=== PATIENT | female | born 1990 | race Caucasian/White ===

== ENCOUNTER 2016-11-26 16:06 | Emergency (ER) | payer OTHER ==
[2016-11-26 16:14] VITALS: BP 128/71; PULSE 78; TEMP 98.3; BMI 26.6
--- NOTE | 2016-11-26 17:36 | PDOC ---
History of Present Illness - General History Source: Patient Exam Limitations: No Limitations - History of Present Illness Initial Comments: 11/26/16 18:38 Pt is a 26 yo F (6.5 weeks ) with no PMHx who presents to the ED with cramping abdominal pain for the past 2 weeks. Patient reports missed with d&c. Patient reports high concern for her current and presents to the ED for further evaluation. Patient reports associated nausea but no vomiting. Patient denies any vaginal discharge or vaginal bleeding. <Renita Lazcano - Last Filed: 11/26/16 18:38> <Alana Dos Santos - Last Filed: 11/26/16 18:45> - General Chief Complaint: Pain Stated Complaint: ABDOMINAL PAIN/6wks Time Seen by Provider: 11/26/16 17:21 Past History <Renita Lazcano - Last Filed: 11/26/16 18:38> - Past Medical History Anemia: No Asthma: No Cancer: No Cardiac Disorders: No CVA: No COPD: No CHF: No Dementia: No Diabetes: No GI Disorders: No Disorders: No HTN: No Hypercholesterolemia: No Liver Disease: No Seizures: No Thyroid Disease: No - Surgical History Abdominal Surgery: Yes (D&C for miscarriage) - Suicide/Smoking/Psychosocial Hx Smoking History: Never smoked Information on smoking cessation initiated: No Hx Alcohol Use: No Drug/Substance Use Hx: No Substance Use Type: None Hx Substance Use Treatment: No <Alana Dos Santos - Last Filed: 11/26/16 18:45> - Past Medical History Allergies/Adverse Reactions: Allergies Allergy/AdvReac Type Severity Reaction Status Date / Time amoxicillin Allergy Severe Rash Verified 11/26/16 16:13 Home Medications: Ambulatory Orders NK [No Known Home Medication] 09/25/14 Review of Systems - Review of Systems Able to Perform ROS?: Yes Comments:: 11/26/16 18:38 GENERAL/CONSTITUTIONAL: No fever or chills. No weakness. HEAD, EYES, EARS, NOSE AND THROAT: No change in vision. No ear pain or discharge. No sore throat. CARDIOVASCULAR: No chest pain or shortness of breath. RESPIRATORY: No cough, wheezing, or hemoptysis. GASTROINTESTINAL: + nausea. +abdominal cramping. No vomiting, diarrhea or constipation. GENITOURINARY: No dysuria, frequency, or change in urination. MUSCULOSKELETAL: No joint or muscle swelling or pain. No neck or back pain. SKIN: No rash NEUROLOGIC: No headache, vertigo, loss of consciousness, or change in strength/ sensation. ENDOCRINE: No increased thirst. No abnormal weight change. HEMATOLOGIC/LYMPHATIC: No anemia, easy bleeding, or history of blood clots. ALLERGIC/IMMUNOLOGIC: No hives or skin allergy. <Renita Lazcano - Last Filed: 11/26/16 18:38> *Physical Exam - Vital Signs Last Vital Signs Temp Pulse Resp BP Pulse Ox 98.3 F 78 18 128/71 100 11/26/16 16:12 11/26/16 16:12 11/26/16 16:12 11/26/16 16:12 11/26/16 16:12 - Physical Exam Comments: 11/26/16 18:39 GENERAL: Awake, alert, and fully oriented, in no acute distress HEAD: No signs of trauma EYES: PERRLA, EOMI, sclera anicteric, conjunctiva clear ENT: Auricles normal inspection, hearing grossly normal, nares patent, oropharynx clear without exudates. Moist mucosa NECK: Normal ROM, supple, no lymphadenopathy, JVD, or masses LUNGS: Breath sounds equal, clear to auscultation bilaterally. No wheezes, and no crackles HEART: +Tachycardic. Regular rhythm, normal S1 and S2, no murmurs, rubs or gallops ABDOMEN: +Tender to R pelvic area. Soft, nontender, normoactive bowel sounds. No guarding, no rebound. No masses EXTREMITIES: Normal range of motion, no edema. No clubbing or cyanosis. No cords, erythema, or tenderness NEUROLOGICAL: Cranial nerves II through XII grossly intact. Normal speech, normal gait SKIN: Warm, Dry, normal turgor, no rashes or lesions noted. PELVIC: Normal physiologic discharge. +R adnexal tenderness. <Renita Lazcano - Last Filed: 11/26/16 18:38> - Vital Signs Last Vital Signs Temp Pulse Resp BP Pulse Ox 98.3 F 78 18 128/71 100 11/26/16 16:12 11/26/16 16:12 11/26/16 16:12 11/26/16 16:12 11/26/16 16:12 <Alana Dos Santos - Last Filed: 11/26/16 18:45> ED Treatment Course - ADDITIONAL ORDERS Additional order review: Laboratory Results 11/26/16 17:56 Urine Color Ltyellow Urine Appearance Slcloudy Urine pH 5.0 Urine Protein Negative Urine Glucose (UA) Negative Urine Ketones Negative Urine Blood 2+ H Urine Nitrite Negative Urine Bilirubin Negative Urine Urobilinogen Negative Urine RBC 2 Urine WBC 1 Ur Epithelial Cells Rare Urine Bacteria Rare Urine Mucus Rare <Renita Lazcano - Last Filed: 11/26/16 18:38> Medical Decision Making - Medical Decision Making 11/26/16 18:44 a/p: 26yo female with R pelvic pain in 1st trimester of preg -concern for poss ectopic -labs -pelvic ultrasound -pelvic exam -ua -beta -reassess <Alana Dos Santos - Last Filed: 11/26/16 18:45> *DC/Admit/Observation/Transfer - Attestations Scribe Attestion: 11/26/16 18:39 Documentation prepared by Renita Lazcano, acting as medical device sales for Alana Dos Santos DO <Renita Lazcano - Last Filed: 11/26/16 18:38>
[2016-11-26 18:05] LABS: URINE APPEARANCE SLCLOUDY; URINE BILIRUBIN NEGATIVE (NEGATIVE); URINE BLOOD 2+ (NEGATIVE); URINE COLOR LTYELLOW; URINE GLUCOSE (UA) NEGATIVE (NEGATIVE); URINE KETONE NEGATIVE (NEGATIVE); URINE NITRITE NEGATIVE (NEGATIVE); URINE PROTEIN NEGATIVE (NEGATIVE); URINE UROBILINOGEN NEGATIVE mg/dL (0.2-1.0)
[2016-11-26 18:15] LABS: URINE BACTERIA RARE /hpf (NONE SEEN); URINE MUCUS RARE; URINE RBC 2 /hpf (0-3); URINE WBC 1 /hpf (3-5)
[2016-11-26 19:11] LABS: BASOPHIL 0.5 % (0-2.0); EOSINOPHIL 1.6 % (0-4.5); MCH 30.1 pg (25.7-33.7); MEAN CELL VOLUME 88.7 fl (80-96); NEUTROPHILS 70.8 % (42.8-82.8); PLATELET COUNT 237 K/MM3 (134-434); RDW 12.2 % (11.6-15.6); WHITE BLOOD COUNT 12.1 K/mm3 (4.0-10.0)
[2016-11-26 20:06] LABS: ALBUMIN 3.8 g/dl (3.4-5.0); ANION GAP 6 (8-16); BILIRUBIN,TOTAL 0.3 mg/dL (0.2-1.0); CALCIUM 8.9 mg/dL (8.5-10.1); CO2 27 mmol/L (21-32); CREATININE 0.5 mg/dL (0.55-1.02); GLUCOSE,RANDOM 68 mg/dL (74-106); SGOT/AST 17 U/L (15-37); SGPT/ALT 22 U/L (12-78)
[2016-11-26 20:21] LABS: ALK PHOS 111 U/L (45-117)
[2016-11-26 21:38] LABS: URINE LEUK ESTERASE Negative (NEGATIVE)
--- NOTE | 2016-11-26 22:27 | PDOC ---
*Physical Exam - Vital Signs Last Vital Signs Temp Pulse Resp BP Pulse Ox 98.3 F 78 18 128/71 100 11/26/16 16:12 11/26/16 16:12 11/26/16 16:12 11/26/16 16:12 11/26/16 16:12 ED Treatment Course - LABORATORY CBC & Chemistry Diagram: 11/26/16 18:22 11/26/16 18:22 - ADDITIONAL ORDERS Additional order review: Laboratory Results 11/26/16 11/26/16 11/26/16 18:22 18:22 17:56 Sodium 134 L Potassium 3.6 Chloride 101 Carbon Dioxide 27 Anion Gap 6 L BUN 7 Creatinine 0.5 L Creat Clearance w eGFR > 60 Random Glucose 68 L Calcium 8.9 Total Bilirubin 0.3 AST 17 ALT 22 Alkaline Phosphatase 111 Total Protein 8.0 Albumin 3.8 Beta HCG, Quant 14099.1 Urine Color Ltyellow Urine Appearance Slcloudy Urine pH 5.0 Ur Specific [place] 1.015 Urine Protein Negative Urine Glucose (UA) Negative Urine Ketones Negative Urine Blood 2+ H Urine Nitrite Negative Urine Bilirubin Negative Urine Urobilinogen Negative Ur Leukocyte Esterase Negative Urine RBC 2 Urine WBC 1 Ur Epithelial Cells Rare Urine Bacteria Rare Urine Mucus Rare Blood Type O POSITIVE Antibody Screen Negative 11/26/16 18:22 RBC 4.47 MCV 88.7 MCHC 34.0 RDW 12.2 MPV 8.0 Neutrophils % 70.8 Lymphocytes % 21.6 Monocytes % 5.5 Eosinophils % 1.6 Basophils % 0.5 *DC/Admit/Observation/Transfer Diagnosis at time of Disposition: Qualifiers: Weeks of gestation: less than 8 weeks Qualified Code(s): Z3A.01 - Less than 8 weeks gestation of - Discharge Dispostion Disposition: HOME Condition at time of disposition: Stable Admit: No - Referrals Referrals: Trace Srivastava MD [Staff Physician] - - Patient Instructions Printed Discharge Instructions: Managing Symptoms of
== END 2016-11-26 22:28 | disposition home or self-care (01) ==
LOC: JER 16:06
DX: O26.891 Other specified pregnancy related conditions, first trimester (principal); Z3A.01 Less than 8 weeks gestation of pregnancy
CPT/HCPCS: 36415; 76817-TC; 80053; 81003; 81015; 84702; 85025; 86850; 86900; 86901; 99282-25

== ENCOUNTER 2016-11-30 11:33 | Emergency (ER) | payer OTHER ==
[2016-11-30 11:40] VITALS: BMI 27.4
--- NOTE | 2016-11-30 11:52 | PDOC ---
History of Present Illness - General Chief Complaint: Pain Stated Complaint: PAIN (6 WKS ) Time Seen by Provider: 11/30/16 11:48 History Source: Patient Exam Limitations: No Limitations - History of Present Illness Travel History: No Initial Comments: 11/30/16 11:59 26 yr female states 6 weeks seen in ER for same last week. Pt states today she became upset at work and started to have pelvic cramps that are stronger than last week. Pt denies any bleeding or back pain. Pt is had SAB at 8 weeks in 2014. Pt has no medical or surgical history. Timing/Duration: reports: constant Quality: reports: cramping Abdominal Pain Onset Location: reports: suprapubic Pain Radiation: reports: no radiation Past History - Past Medical History Allergies/Adverse Reactions: Allergies Allergy/AdvReac Type Severity Reaction Status Date / Time amoxicillin Allergy Severe Rash Verified 11/30/16 11:35 Home Medications: Ambulatory Orders NK [No Known Home Medication] 09/25/14 Anemia: No Asthma: No Cancer: No Cardiac Disorders: No CVA: No COPD: No CHF: No Dementia: No Diabetes: No GI Disorders: No Disorders: No HTN: No Hypercholesterolemia: No Liver Disease: No Seizures: No Thyroid Disease: No - Surgical History Abdominal Surgery: Yes (D&C for miscarriage) - Suicide/Smoking/Psychosocial Hx Smoking History: Never smoked Information on smoking cessation initiated: No Hx Alcohol Use: No Drug/Substance Use Hx: No Substance Use Type: None Hx Substance Use Treatment: No Review of Systems - Review of Systems Able to Perform ROS?: Yes Is the patient limited Polish proficient: No Constitutional: No: Symptoms Reported HEENTM: No: Symptoms Reported Respiratory: No: Symptoms reported Cardiac (ROS): No: Symptoms Reported ABD/GI: No: Symptoms Reported : Yes: See HPI Musculoskeletal: No: Symptoms Reported Integumentary: No: Symptoms Reported Neurological: No: Symptoms reported *Physical Exam - Vital Signs Last Vital Signs Temp Pulse Resp BP Pulse Ox 98.3 F 95 H 18 142/79 100 11/30/16 11:35 11/30/16 11:35 11/30/16 11:35 11/30/16 11:35 11/30/16 11:35 - Physical Exam General Appearance: Yes: Nourished, Appropriately Dressed HEENT: positive: EOMI, [place] Neck: negative: Tender Respiratory/Chest: positive: Lungs Clear, Normal Breath Sounds. negative: Chest Tender Cardiovascular: positive: Regular Rhythm, Regular Rate Gastrointestinal/Abdominal: positive: Normal Bowel Sounds, Tender (suprapubic ) , Soft Musculoskeletal: positive: Normal Inspection Extremity: positive: Normal Capillary Refill, Normal Inspection, Normal Range of Motion Integumentary: positive: Normal Color, Dry, Warm Neurologic: positive: Fully Oriented, Alert, Normal Mood/Affect, Normal Response , Motor Strength / ED Treatment Course - Consult/PCP Time Called: 14:47 Case discussed with consulting physician: Leatha Gann Medical Decision Making - Medical Decision Making 11/30/16 12:01 cc: lower abdominal/suprapubic area tenderness no vaginal discharge or bleeding will r/o SAB will repeat labs, US pt has apt on 12/09/[address]Sofia Yeboah 11/30/16 14:47 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 labs and US reviewed. pt is cleared to be discharged and follow up as planned. *DC/Admit/Observation/Transfer Diagnosis at time of Disposition: Threatened in early - Discharge Dispostion Disposition: HOME Condition at time of disposition: Good - Patient Instructions Additional Instructions: please keep your appointment with the photoresist printer as scheduled for December 09 pelvic rest avoid any strenuous activity heavy bending or lifting if you are having cramps try to remove yourself from stress full situations and try relaxation techniques return to ER for any worsening symptoms BHCG level 43452.3 Ultrasound shows heart rate at 110bpm and measuring approximately 6 weeks
[2016-11-30 12:22] LABS: URINE APPEARANCE SLCLOUDY; URINE BILIRUBIN NEGATIVE (NEGATIVE); URINE BLOOD 3+ (NEGATIVE); URINE COLOR YELLOW; URINE GLUCOSE (UA) NEGATIVE (NEGATIVE); URINE KETONE NEGATIVE (NEGATIVE); URINE NITRITE NEGATIVE (NEGATIVE); URINE PROTEIN NEGATIVE (NEGATIVE); URINE UROBILINOGEN NEGATIVE mg/dL (0.2-1.0)
[2016-11-30 12:33] LABS: URINE MUCUS RARE; URINE RBC 31 /hpf (0-3); URINE WBC 3 /hpf (3-5)
[2016-11-30 15:33] VITALS: BP 108/63; PULSE 69; TEMP 98
[2016-11-30 16:50] LABS: URINE LEUK ESTERASE Negative (NEGATIVE)
== END 2016-11-30 15:33 | disposition home or self-care (01) ==
LOC: JER 11:33
DX: O26.891 Other specified pregnancy related conditions, first trimester (principal); Z3A.01 Less than 8 weeks gestation of pregnancy; O20.0 Threatened abortion
CPT/HCPCS: 36415; 76817-TC; 81003; 81015; 84702; 87491; 87591; 99282-25

== ENCOUNTER 2017-02-07 15:02 | Emergency (ER) | payer OTHER ==
[2017-02-07 15:07] VITALS: BP 142/69; PULSE 71; TEMP 97.7; BMI 27.4
[2017-02-07] MEDS ORDERED: METOCLOPRAMIDE HCL INJECTION 10 MG/2 ML VIAL IVPB ONE (16:15)
--- NOTE | 2017-02-07 16:22 | PDOC ---
History of Present Illness - General History Source: Patient - History of Present Illness Timing/Duration: other Severity: severe Associated Symptoms: reports: headaches. denies: fever/chills, nausea/vomiting <Na Mcgowan - Last Filed: 02/07/17 18:51> <Ameya Tao - Last Filed: 02/07/17 20:29> - General Chief Complaint: Headache Stated Complaint: BLURRY VISION, HEADACHE @ 17WKS PREG Time Seen by Provider: 02/07/17 16:00 Past History - Past Medical History Anemia: No Asthma: No Cancer: No Cardiac Disorders: No CVA: No COPD: No CHF: No Dementia: No Diabetes: No GI Disorders: No Disorders: No HTN: No Hypercholesterolemia: No Liver Disease: No Seizures: No Thyroid Disease: No - Surgical History Abdominal Surgery: Yes (D&C for miscarriage) - Reproductive History (#): 2 Para: 0 - Immunization History Immunization Up to Date: Yes - Suicide/Smoking/Psychosocial Hx Smoking History: Never smoked Have you smoked in the past 12 months: No Hx Alcohol Use: No Drug/Substance Use Hx: No Substance Use Type: None Hx Substance Use Treatment: No <Na Mcgowan - Last Filed: 02/07/17 18:51> <Ameya Tao - Last Filed: 02/07/17 20:29> - Past Medical History Allergies/Adverse Reactions: Allergies Allergy/AdvReac Type Severity Reaction Status Date / Time amoxicillin Allergy Severe Rash Verified 02/07/17 15:07 Home Medications: Ambulatory Orders Vits #93/Iron Fum/FA [ Formula Tablet] 1 each PO DAILY Review of Systems - Review of Systems Constitutional: No: Chills, Fever ABD/GI: No: Nausea, Vomiting : No: Dysuria, Discharge, Flank Pain, Hematuria Neurological: Yes: Headache <Na Mcgowan - Last Filed: 02/07/17 18:51> *Physical Exam - Vital Signs Last Vital Signs Temp Pulse Resp BP Pulse Ox 97.7 F 71 20 142/69 100 02/07/17 15:04 02/07/17 15:04 02/07/17 15:04 02/07/17 15:04 02/07/17 15:04 - Physical Exam General Appearance: Yes: Appropriately Dressed. No: Apparent Distress HEENT: positive: Normal Voice, Other (no obvious papilledema on fundoscopic exam ) Neck: positive: Supple Respiratory/Chest: negative: Respiratory Distress Female Pelvic Exam: positive: normal external exam, cervical os closed, normal adnexa. negative: CMT, vaginal bleeding Gastrointestinal/Abdominal: positive: Soft. negative: Tender Extremity: positive: Normal Inspection Integumentary: positive: Dry, Warm Neurologic: positive: Fully Oriented, Alert, Normal Mood/Affect, Motor Strength 5/5 <Na Mcgowan - Last Filed: 02/07/17 18:51> - Vital Signs Last Vital Signs Temp Pulse Resp BP Pulse Ox 97.7 F 71 20 142/69 100 02/07/17 15:04 02/07/17 15:04 02/07/17 15:04 02/07/17 15:04 02/07/17 15:04 <Ameya Tao - Last Filed: 02/07/17 20:29> ED Treatment Course - LABORATORY CBC & Chemistry Diagram: 02/07/17 16:39 02/07/17 16:39 - RADIOLOGY Radiology Studies Ordered: Category Date Time Status TRANSVAGINAL US PREG [US] Stat Ultrasound 02/07/17 16:16 Ordered <Na Mcgowan - Last Filed: 02/07/17 18:51> - LABORATORY CBC & Chemistry Diagram: 02/07/17 16:39 02/07/17 16:39 - ADDITIONAL ORDERS Additional order review: Laboratory Results 02/07/17 02/07/17 02/07/17 16:55 16:39 16:39 Sodium 136 Potassium 3.7 Chloride 101 Carbon Dioxide 25 Anion Gap 10 BUN 6 L Creatinine 0.5 L Creat Clearance w eGFR > 60 Random Glucose 64 L Calcium 9.1 Total Bilirubin 0.4 D AST 36 D ALT 46 D Alkaline Phosphatase 84 D Total Protein 7.7 Albumin 3.5 Beta HCG, Quant 79624.8 Urine Color Yellow Urine Appearance Slcloudy Urine pH 6.0 Ur Specific [place] 1.020 Urine Protein Negative Urine Glucose (UA) Negative Urine Ketones 1+ H Urine Blood 2+ H Urine Nitrite Negative Urine Bilirubin Negative Urine Urobilinogen Negative Urine WBC (Auto) 1 Urine RBC (Auto) 15 Ur Epithelial Cells Rare Urine Bacteria Rare Urine Mucus Few 02/07/17 16:39 RBC 4.31 MCV 87.6 MCHC 35.0 RDW 12.7 MPV 7.9 Neutrophils % 81.8 Lymphocytes % 13.7 D Monocytes % 3.6 L Eosinophils % 0.6 Basophils % 0.3 - Medications Given in the ED: ED Medications Discontinued Medications Generic Name Dose Route Start Last Admin Trade Name Crista PRN Reason Stop Dose Admin Acetaminophen 650 mg 02/07/17 18:23 02/07/17 18:54 Tylenol - PO 02/07/17 18:24 650 mg ONCE ONE Administration Metoclopramide HCl 10 mg 02/07/17 16:15 02/07/17 17:00 Reglan Injection - IVPB 02/07/17 16:16 10 mg ONCE ONE Administration <Ameya Tao D - Last Filed: 02/07/17 20:29> Medical Decision Making - Medical Decision Making 02/07/17 16:18 26 yo F, (s/p 1 spon AB), ~ 17 weeks by dates with +IUP demonstrated on multiple ultrasounds per patient, states she is currently on clindamycin for the past 4 weeks for elevated wbc and ? leakage of amniotic fluid in OB's office , here with headache since starting clindamycin. Patient states she gets daily frontal headache that last all day, but worsened today with some dizziness and possible blurry vision. Has not taking anything for pain. No seizures, nausea or vomiting. Also reporting left pelvic pain for 3 days, no vaginal bleeding or dysuria. No vaginal discharge/leakage at this time See exam AKHTAR in Stable in ED w/ unremarkable exam Consider venous sinus thrombosis (though very low suspicion as no vomiting or papilledema and neuro intact), gestation too early to consider pre-eclampsia, possible side effect of clindamycin (though AKHTAR not well documented SE of clinda) , possible migrainous -reglan -labs -US -will discuss dispo w/ Dr Gann, pt's OB Pelvic pain Abd benign w/ unremarkable pelvic exam R/o uti -US in ED 02/07/17 18:24 02/07/17 18:27 Pt feeling moderately better w/ reglan. Pt remains well appearing and requesting food at this time. Labs unremarkable. US read and call back from OB pending 02/07/17 18:51 At this point, Dr. Gann has not return call ~ 2 hours of paging M.Asif Patient signed out to ERICA Tao pending ultrasound <Na Mcgowan - Last Filed: 02/07/17 18:51> *DC/Admit/Observation/Transfer <Na Mcgowan - Last Filed: 02/07/17 18:51> - Discharge Dispostion Admit: No <Ameya Tao - Last Filed: 02/07/17 20:29> Diagnosis at time of Disposition: Vaginal bleeding in - Discharge Dispostion Disposition: HOME Condition at time of disposition: Stable - Referrals Referrals: Maribel Lozoya MD [Primary Care Provider] - Leatha Gann MD [Staff Physician] - - Patient Instructions Printed Discharge Instructions: DI for Vaginal Bleeding Additional Instructions: Follow up with Dr. Gann this week for further evaluation. Bring Ultrasound report with you. Return if any concerns for further evaluation. Print Language: KINYARWANDA - Post Discharge Activity
[2017-02-07 16:45] LABS: BASOPHIL 0.3 % (0-2.0); EOSINOPHIL 0.6 % (0-4.5); MCH 30.7 pg (25.7-33.7); MEAN CELL VOLUME 87.6 fl (80-96); MEAN PLT VOLUME 7.9 fl (7.5-11.1); NEUTROPHILS 81.8 % (42.8-82.8); PLATELET COUNT 206 K/MM3 (134-434); RDW 12.7 % (11.6-15.6); WHITE BLOOD COUNT 12.7 K/mm3 (4.0-10.0)
[2017-02-07] MEDS ORDERED: METOCLOPRAMIDE HCL INJECTION 10 MG/2 ML VIAL ONE (16:55)
[2017-02-07 17:04] LABS: URINE APPEARANCE SLCLOUDY; URINE BILIRUBIN NEGATIVE (NEGATIVE); URINE BLOOD 2+ (NEGATIVE); URINE COLOR YELLOW; URINE GLUCOSE (UA) NEGATIVE (NEGATIVE); URINE KETONE 1+ (NEGATIVE); URINE LEUK ESTERASE NEGATIVE (NEGATIVE); URINE NITRITE NEGATIVE (NEGATIVE); URINE PROTEIN NEGATIVE (NEGATIVE); URINE UROBILINOGEN NEGATIVE mg/dL (0.2-1.0)
[2017-02-07 17:09] LABS: URINE BACTERIA RARE /hpf (NONE SEEN); URINE MUCUS FEW; URINE RBC 15 /hpf (0-3); URINE WBC 1 /hpf (3-5)
[2017-02-07 17:28] LABS: ALBUMIN 3.5 g/dl (3.4-5.0); ALK PHOS 84 U/L (45-117); ANION GAP 10 (8-16); BILIRUBIN,TOTAL 0.4 mg/dL (0.2-1.0); CALCIUM 9.1 mg/dL (8.5-10.1); CO2 25 mmol/L (21-32); CREATININE 0.5 mg/dL (0.55-1.02); GLUCOSE,RANDOM 64 mg/dL (74-106); SGOT/AST 36 U/L (15-37); SGPT/ALT 46 U/L (12-78); TOT PROT 7.7 g/dl (6.4-8.2)
[2017-02-07] MEDS ORDERED: ACETAMINOPHEN 325 MG TABLET (FP) PO ONE (18:23)
[2017-02-07] MEDS ORDERED: ACETAMINOPHEN 325 MG TABLET (FP) ONE (18:48)
[2017-02-08 13:33] LABS: URINE LEUK ESTERASE Negative (NEGATIVE)
== END 2017-02-07 20:38 | disposition home or self-care (01) ==
LOC: JER 15:02
PROC: 3E033GC Introduction of Other Therapeutic Substance into Peripheral Vein, Percutaneous Approach (ICD-10-PCS; principal; 2017-02-07)
DX: O26.892 Other specified pregnancy related conditions, second trimester (principal); O46.92 Antepartum hemorrhage, unspecified, second trimester; Z3A.17 17 weeks gestation of pregnancy
CPT/HCPCS: 36415; 76815-TC; 80053; 81003; 81015; 84702; 85025; 87086; 87491; 87591; 96374; 99283-25

== ENCOUNTER 2017-07-13 01:25 | Inpatient (IN) | payer OTHER ==
[~2017-07-13 01:25] MED LIST: DEXTROSE 5%-LACTATED RINGERS 500 ML IV ONE
[2017-07-13] MEDS ORDERED: DEXTROSE 5%-LACTATED RINGERS 500 ML IV ONE (02:25)
[2017-07-13] MEDS ORDERED: PROMETHAZINE HCL 25 MG/1 ML VIAL IVPB ONE (02:30)
[2017-07-13] MEDS ORDERED: BUTORPHANOL TARTRATE 1 MG/ML VIAL IVPB ONE (02:30)
[2017-07-13 02:31] LABS: BASO % 0.2 % (0-2.0); EOS % 0.2 % (0-4.5); HEMATOCRIT 36.7 % (32.4-45.2); HEMOGLOBIN 12.6 GM/dL (10.7-15.3); LYMPH % 9.2 % (8-40); MCH 30.7 pg (25.7-33.7); MCHC 34.4 g/dl (32.0-36.0); MEAN CELL VOLUME 89.4 fl (80-96); MEAN PLT VOLUME 8.5 fl (7.5-11.1); MONO % 3.5 % (3.8-10.2); NEUT % 86.9 % (42.8-82.8); PLATELET COUNT 199 K/MM3 (134-434); RBC 4.11 M/mm3 (3.60-5.2); RDW 12.2 % (11.6-15.6); WHITE BLOOD COUNT 18.5 K/mm3 (4.0-10.0)
[2017-07-13] MEDS ORDERED: BUTORPHANOL TARTRATE 1 MG/ML VIAL ONE ×2 (02:33)
[2017-07-13] MEDS ORDERED: PROMETHAZINE HCL 25 MG/1 ML VIAL ONE (02:33)
[2017-07-13 02:54] LABS: PROTHROMBIN TIME (PATIENT) 11.3 SEC (9.7-13.0)
[2017-07-13 02:56] LABS: ACTIVATED PTT 26.9 SECONDS (26.9-34.4)
[2017-07-13 03:01] LABS: ANION GAP 10 (8-16); BLOOD UREA NITROGEN 8 mg/dL (7-18); CALCIUM 8.8 mg/dL (8.5-10.1); CHLORIDE 103 mmol/L (98-107); CO2 22 mmol/L (21-32); CREATININE 0.5 mg/dL (0.55-1.02); GLUCOSE,RANDOM 76 mg/dL (74-106); SODIUM 135 mmol/L (136-145)
[2017-07-13 03:30] VITALS: BMI 29.4
[2017-07-13] MEDS ORDERED: ELECTROLYTE-148 SOLN 1,000 ML IV SCH (06:30)
[2017-07-13] MEDS ORDERED: FENTANYL/BUPIVACAINE/NS/PF - PCEA - 50 ML DISP.SYRIN EP ONE ×2 (07:04→11:31)
[2017-07-13] MEDS ORDERED: NALOXONE HCL 0.4 MG/ML VIAL IVPUSH PRN (07:07)
[2017-07-13] MEDS ORDERED: FENTANYL/BUPIVACAINE/NS/PF - PCEA - 50 ML DISP.SYRIN EP SCH (07:15)
[2017-07-13] MEDS ORDERED: OXYTOCIN 20 UNITS in 0.9% NS 20 UNIT/1,000 ML INFUS.BAG IV ONE (08:49)
--- NOTE | 2017-07-13 08:58 | HP ---
Past Medical History - Admission Chief Complaint: Labor pain History of Present Illness: 27 yo , @ 39 weeks gestation, EDC 07/19/17, admitted for labor pain. She denies any vaginal bleeding nor rupture of membrane. History Source: Patient Limitations to Obtaining History: No Limitations - Past Medical History ...: 2 ...Para: 0 ...Term: 0 ...: 0 ...Spon : 1 ...Induced : 0 ...Multiple Gestation: 0 ...LMP: 10/19/16 ... Weeks Gestation by Dates: 39.1 ...EDC by Dates: 07/19/17 ...EDC by Sono: 07/22/17 - Past Surgical History Past Surgical History: Yes: None Hx Myomectomy: No Hx Transabdominal Cerclage: No - Smoking History Smoking history: Never smoked Have you smoked in the past 12 months: No - Alcohol/Substance Use Hx Alcohol Use: No History of Substance Use: reports: None - Social History Usual Living Arrangement: Yes: With Significant Other History of Recent Travel: No Home Medications - Allergies Allergies/Adverse Reactions: Allergies Allergy/AdvReac Type Severity Reaction Status Date / Time amoxicillin Allergy Severe Rash Verified 07/13/17 03:01 - Home Medications Home Medications: Ambulatory Orders Vit 93/Iron Fum/Folic [ Formula Tablet] 1 each PO DAILY Family Disease History - Family Disease History Family History: Unremarkable Review of Systems - Review of Systems Constitutional: reports: No Symptoms Eyes: reports: No Symptoms HENT: reports: No Symptoms Neck: reports: No Symptoms Cardiovascular: reports: No Symptoms Respiratory: reports: No Symptoms Gastrointestinal: reports: No Symptoms Genitourinary: reports: Pain Breasts: reports: No Symptoms Reported Musculoskeletal: reports: No Symptoms Integumentary: reports: No Symptoms Neurological: reports: No Symptoms Endocrine: reports: No Symptoms Psychiatric: reports: No Symptoms Pain Intensity: 8 Physical Exam - Maternity Vital Signs: Vital Signs Temperature 98.3 F 07/13/17 06:00 Pulse Rate 72 07/13/17 08:15 Respiratory Rate 18 07/13/17 08:15 Blood Pressure 101/59 07/13/17 08:15 O2 Sat by Pulse Oximetry (%) 100 07/13/17 08:15 Constitutional: Yes: Well Nourished Eyes: Yes: Conjunctiva Clear HENT: Yes: Atraumatic Neck: Yes: Supple Cardiovascular: Yes: Regular Rate and Rhythm Lungs: Clear to auscultation - Abdominal Exam/OB Number of Fetuses: Single Presentation: Vertex Contractions: Yes Regularity: Irregular - Vaginal Exam/OB Dilatation (cm): 4 Effacement (%): 90 Amniotic Membrane Status: Intact Amniotic Fluid: Yes: Blood Stained Station: -1 - Physical Exam ...Motor Strength: WNL Psychiatric: Yes: Alert, Oriented - Labs Lab Results: CBC, BMP 07/13/17 01:46 07/13/17 01:46 Problem List - Problems (1) Pain during labor Code(s): O99.89 - OTH DISEASES AND CONDITIONS COMPL PREG/CHLDBRTH; R52 - PAIN, UNSPECIFIED Assessment/Plan Active labor Admit to L&D Analgesia as needed Anticipate
[2017-07-13] MEDS ORDERED: OXYTOCIN 30 UNITS in 0.9% NS 30 UNIT/500 ML INFUS.BAG IVPB SCH (09:00)
[2017-07-13] MEDS ORDERED: TUBERCULIN PPD 5 TU/0.1ML SYRINGE (IN PATIENT USE ONLY) ID ONE (09:00)
--- NOTE | 2017-07-13 09:01 | PN ---
Progress Note (short form) - Note Progress Note: Patient seen and evaluated, she's lying comfortably in bed after epidural anesthesia. FHR : Reassuring [place] : + irregular contractions VE : / -1 AROM ( blood stained ) A / P : Active labor Pitocin augmentation Anticipate Problem List - Problems (1) Pain during labor Code(s): O99.89 - OTH DISEASES AND CONDITIONS COMPL PREG/CHLDBRTH; R52 - PAIN, UNSPECIFIED
[2017-07-13] MEDS ORDERED: LIDOCAINE HCL 1% PRESERVATIVE FREE - 30ML VIAL ONE (11:24)
[2017-07-13] MEDS ORDERED: BENZOCAINE 20% 57 GM BOTTLE TP PRN (12:20)
[2017-07-13] MEDS ORDERED: WITCH HAZEL 50% (TUCKS) 40 PAD/JAR PAD TP PRN (12:20)
[2017-07-13] MEDS ORDERED: METHYLERGONOVINE MALEATE 0.2 MG/1 ML AMP IM PRN (12:20)
[2017-07-13] MEDS ORDERED: BISACODYL 10 MG SUPP.RECT RC PRN (12:20)
[2017-07-13] MEDS ORDERED: BENZOCAINE 28 GM HEMORRHOIDAL OINTMENT TP PRN (12:20)
--- NOTE | 2017-07-13 12:24 | PN ---
Delivery - Delivery Vaginal Delivery: Spontaneous Type of Anesthesia: Epidural Episiotomy/Laceration: 1st degree EBL (cc): 300 Delivery, Single - [place] Feeding Plan Initial Plan: Elected not to breastfeed exclusively throughout hospitalization Remarks - Remarks Remarks: Normal spontaneous vaginal delivery of a live infant over 1st degree labial laceration. Nose / Oropharynx suctioned @ perineum. Nuchal cord x 1 clamped and cut. Placenta expelled spontaneously intact. Labial laceration repaired with 2.0 Chromic.
[2017-07-13] MEDS ORDERED: OXYTOCIN 20 UNITS in 0.9% NS 20 UNIT/1,000 ML INFUS.BAG IV SCH (12:30)
[2017-07-13] MEDS: IBUPROFEN 600 MG TABLET (FP) PO PRN ×2 (16:50→23:22)
[2017-07-13] MEDS: FERROUS SO4 325 MG TABLET (FP) PO SCH (16:50)
[2017-07-13] MEDS: ACETAMINOPHEN 325 MG TABLET (FP) PO PRN (23:17)
--- NOTE | 2017-07-14 07:16 | PN ---
Progress Note (SOAP) - Subjective Chief Complaint: Pt doing well - Current Medications Current Medications: Active Medications Acetaminophen (Tylenol -) 650 mg PO Q3H PRN PRN Reason: PAIN Last Admin: 07/13/17 23:17 Dose: 650 mg Benzocaine (Americaine 20% [place] -) 1 spray TP PRN PRN PRN Reason: PAIN Last Admin: 07/13/17 16:51 Dose: 1 spray Benzocaine (Americaine Ointment -) 1 applic TP PRN PRN PRN Reason: PAIN Bisacodyl (Dulcolax Suppository -) 10 mg RC PRN PRN PRN Reason: CONSTIPATION Diphtheria/Tetanus/Acell Pertussis (Boostrix -) 0.5 ml IM .ONCE ONE Stop: 07/14/17 10:01 Ferrous Sulfate (Feosol -) 325 mg PO TIDCM RYAN Last Admin: 07/13/17 16:50 Dose: 325 mg Ibuprofen (Motrin -) 600 mg PO Q4H PRN PRN Reason: PAIN Last Admin: 07/13/17 23:22 Dose: 600 mg Methylergonovine Maleate (Methergine Injection -) 0.2 mg IM Q4H PRN PRN Reason: EXCESSIVE BLEEDING (L&D) Naloxone HCl (Narcan -) 0.4 mg IVPUSH PRN PRN PRN Reason: Sedation Multivit/Folic Acid/Iron ( Vitamins (Sjr) -) 1 tab PO DAILY RYAN Senna/Docusate Sodium (Pericolace -) 2 tablet PO HS PRN PRN Reason: CONSTIPATION Witch Neva/Glycerin (Tucks Pads -) 1 pad TP PRN PRN PRN Reason: PAIN - Objective Vital Signs: Vital Signs Temperature 98.1 F 07/14/17 03:55 Pulse Rate 80 07/14/17 03:55 Respiratory Rate 18 07/14/17 03:55 Blood Pressure 110/76 07/14/17 03:55 O2 Sat by Pulse Oximetry (%) 99 07/13/17 13:00 Constitutional: Yes: Well Nourished, No Distress Breast(s): Yes: WNL Musculoskeletal: Yes: WNL Extremities: Yes: WNL Psychiatric: Yes: WNL, Alert, Oriented Labs Lab Results: CBC, BMP 07/13/17 01:46 07/13/17 01:46 Assessment/Plan SP PPD 1 Plan DC home if stable in am
[2017-07-14] MEDS: FERROUS SO4 325 MG TABLET (FP) PO SCH ×3 (08:00→17:30)
[2017-07-14] MEDS: PRENATAL VITAMINS W/ FOLIC ACID TABLET (FP) PO SCH (09:11)
[2017-07-14 09:34] LABS: BASO % 0.3 % (0-2.0); EOS % 0.2 % (0-4.5); HEMATOCRIT 31.1 % (32.4-45.2); HEMOGLOBIN 10.6 GM/dL (10.7-15.3); MCH 30.9 pg (25.7-33.7); MCHC 34.1 g/dl (32.0-36.0); MEAN CELL VOLUME 90.5 fl (80-96); MONO % 3.7 % (3.8-10.2); NEUT % 84.8 % (42.8-82.8); PLATELET COUNT 188 K/MM3 (134-434); RBC 3.44 M/mm3 (3.60-5.2); RDW 12.4 % (11.6-15.6); WHITE BLOOD COUNT 14.1 K/mm3 (4.0-10.0)
[2017-07-14] MEDS ORDERED: DIPHTH,PERTUSS(ACELL),TET 0.5 ML DISP.SYRIN IM ONE (10:00)
[2017-07-14] MEDS ORDERED: SENNOSIDES/DOCUSATE COMBO (SENNA PLUS) TABLET (UD) PO PRN (22:00)
[2017-07-14] MEDS: IBUPROFEN 600 MG TABLET (FP) PO PRN (22:24)
[2017-07-14] MEDS: ACETAMINOPHEN 325 MG TABLET (FP) PO PRN (22:30)
[2017-07-15] MEDS: FERROUS SO4 325 MG TABLET (FP) PO SCH ×2 (08:21→11:32)
[2017-07-15 08:30] VITALS: BP 112/56; PULSE 83; TEMP 97.7
--- NOTE | 2017-07-15 08:39 | DS ---
Physical Exam-[facility]OM[facility]KER Vital Signs: Vital Signs Temperature 97.7 F 07/15/17 08:29 Pulse Rate 83 07/15/17 08:29 Respiratory Rate 18 07/15/17 08:29 Blood Pressure 112/56 07/15/17 08:29 O2 Sat by Pulse Oximetry (%) 99 07/13/17 13:00 Constitutional: Yes: Well Nourished Eyes: Yes: Conjunctiva Clear HENT: Yes: Atraumatic Neck: Yes: Supple Cardiovascular: Yes: Regular Rate and Rhythm Respiratory: Yes: Regular Gastrointestinal: Yes: Normal Bowel Sounds Pelvis: Yes: WNL External Genitalia: Yes: Normal Vaginal Exam: Yes: Normal Cervix: Yes: Normal Uterus: Yes: Firm ....Post : Yes: Uterus firm, Moderate lochia serosa Breast(s): Yes: WNL Extremities: Yes: WNL Neurological: Yes: Alert, Oriented ...Motor Strength: WNL Psychiatric: Yes: Alert, Oriented Labs: CBC, BMP 07/14/17 09:10 07/13/17 01:46 Delivery - Delivery Vaginal Delivery: Spontaneous Type of Anesthesia: Epidural Episiotomy/Laceration: 1st degree EBL (cc): 300 Delivery, Single - Stages of Labor Date 1st Stage Initiatied: 07/13/17 Time 1st Stage Initiated: 00:00 Date 2nd Stage Initiated: 07/13/17 Time 2nd Stage Initiated: 11:45 Date of Delivery: 07/13/17 Time of Delivery: 12:03 Time Placenta Delivered: 12:07 - Condition of Infant Hims Coder/Fleet Manager/Dispatch Present: No Infant Gender: Male Weight: 6 lb 4 oz Position: Right, OA Total Hours ROM (Hrs/Mins): 3h18m - 1 Minute Total Score: 9 5 Minutes Total Score: 9 - Feeding Plan Initial Plan: Elected not to breastfeed exclusively throughout hospitalization Discharge Summary Reason For Visit: LABOR ADMIT Current Active Problems Pain during labor (Acute) Procedures: Principal: Normal spontaneous vaginal delivery Hospital Course: Routine care Condition: Good - Instructions Diet, Activity, Other Instructions: Dr. Gann Radiology Specialist discharge instructions Physical activity Resume your normal everyday activity as tolerated no heavy lifting or exercise until seen by your surgeon. You may walk unlimited angela of and climb stairs. You may resume driving the car when you feel safe and comfortable behind the wheel. No sexual activity as instructed by Dr. Monreal. Wound care If you have a bandage, leave it on, and keep dry for 48-72 hours. After that time discard the outer bandage. If they are tapes on the skin under the out of bandage leave them in place. They will peel off in the next 7 to 10 days. Do Not Peel them off. You may shower the day after surgery. If there are tapes present on the skin, you may shower over them. Diet There are no dietary restrictions. Eat healthy, high-fiber foods. Drink 6 to 8 glasses of liquid each day. This will assist in keeping your bowels are regular. Pain management You may take Tylenol or acetaminophen or Ibuprofen (for example, Motrin, Advil etc.) from my pain prescription medication is ordered should be taken as prescribed for moderate to severe pain. Call Dr. Monreal for any of the following: Severe pain not relieved by medication Fever of 101 or higher Excessive bleeding or drainage on dressing Inability to urinate Call the office at [phone] for an appointment in seven days. Referrals: Mahsa Monreal MD [Staff Physician] - Disposition: HOME - Home Medications Comprehensive Discharge Medication List: Ambulatory Orders Vit 93/Iron Fum/Folic [ Formula Tablet] 1 each PO DAILY Ibuprofen [Motrin -] 600 mg PO QID #28 tablet 07/14/17
[2017-07-15] MEDS: PRENATAL VITAMINS W/ FOLIC ACID TABLET (FP) PO SCH (10:00)
[2017-07-15] MEDS: IBUPROFEN 600 MG TABLET (FP) PO PRN (11:31)
== END 2017-07-15 15:30 | disposition home or self-care (01) | DRG 560 ==
LOC: JLDR 01:25 → J3W 14:02
PROVIDERS: ADMIT Obstetrics & Gynecology; ATTEND Obstetrics & Gynecology
PROC: 0HQ9XZZ Repair Perineum Skin, External Approach (ICD-10-PCS; principal; 2017-07-13)
PROC: 0W8NXZZ Division of Female Perineum, External Approach (ICD-10-PCS; 2017-07-13)
PROC: 10E0XZZ Delivery of Products of Conception, External Approach (ICD-10-PCS; 2017-07-13)
DX: O70.0 First degree perineal laceration during delivery (principal); Z3A.39 39 weeks gestation of pregnancy; Z37.0 Single live birth
CPT/HCPCS: 36415; 59409; 80048; 85025; 85610; 85730; 86593; 86850; 86900; 86901; 90715